=== PATIENT | female | born 1990 | race African-American/Black ===

== ENCOUNTER 2017-03-09 19:45 | Emergency (ER) | payer BC ==
[~2017-03-09] VITALS: Ht 157.5 cm; Wt 55.3 kg
[2017-03-09] MEDS ORDERED: MULTIVITAMINS1 EAC2 ORAL (19:56)
[2017-03-09] MEDS ORDERED: IRON159 MG PO (19:56)
[2017-03-09] MEDS ORDERED: Metoclopramide 10mg/2ml Inj IVP ONE (20:00)
[2017-03-09] MEDS ORDERED: DiphenhydrAMINE 50mg/ml Inj IVP ONE (20:00)
[2017-03-09 20:36] LABS: BASOPHILS % (AUTO) 1.1 % (0.0-2.0); EOSINOPHILS % (AUTO) 0.5 % (0.0-3.0); HEMATOCRIT 36.4 % (37.0-47.0); HEMOGLOBIN 10.9 G/DL (12.0-16.0); MEAN CORPUSCULAR VOLUME 79 FL (80-99); MONOCYTES % (AUTO) 7.6 % (1.0-10.0); NEUTROPHILS % (AUTO) 61.8 % (45.0-75.0); PLATELET COUNT 239 K/UL (150-450); RED BLOOD COUNT 4.59 M/UL (4.20-5.40); RED CELL DISTRIBUTION WIDTH 14.4 % (11.6-14.8)
[2017-03-09 20:48] LABS: APPEARANCE,URINE CLEAR; BILIRUBIN, URINE NEGATIVE (NEGATIVE); COLOR,URINE PALE YELLOW; GLUCOSE, URINE (UA) NEGATIVE (NEGATIVE); KETONES,URINE NEGATIVE (NEGATIVE); LEUKOCYTE ESTERASE ,URINE NEGATIVE (NEGATIVE); NITRITE,URINE NEGATIVE (NEGATIVE); PH,URINE 6.5 (4.5-8.0); PROTEIN,URINE NEGATIVE (NEGATIVE); UROBILINOGEN,URINE NORMAL MG/DL (0.0-1.0)
[2017-03-09 20:54] LABS: ALANINE AMINOTRANSFERASE 19 U/L (12-78); ALBUMIN 3.7 G/DL (3.4-5.0); ALBUMIN/GLOBULIN RATIO 0.9 (1.0-2.7); ALKALINE PHOSPHATASE 49 U/L (46-116); ANION GAP 9 mmol/L (5-15); ASPARTATE AMINO TRANSFERASE 32 U/L (15-37); BILIRUBIN,TOTAL 0.3 MG/DL (0.2-1.0); BLOOD UREA NITROGEN 12 mg/dL (7-18); CALCIUM 9.3 MG/DL (8.5-10.1); CARBON DIOXIDE 25 MMOL/L (21-32); CHLORIDE 103 MMOL/L (98-107); CREATININE 0.8 MG/DL (0.55-1.30); POTASSIUM 4.7 MMOL/L (3.5-5.1); SODIUM 136 MMOL/L (136-145)
[2017-03-09] MEDS ORDERED: Morphine Sulfate 4mg/ml Inj IVP ONE (21:30)
--- NOTE | 2017-03-09 23:52 | Emergency Room Report ---
History of Present Illness General Chief Complaint: Complications Source: Patient Present Illness HPI Patient presents after passing clot vaginally at work. She also c/o suprapubic pain. This is 10/10, crampy and aching, fairly constant, not radiating. She claims 5 weeks . Aside from clot (shows picture) - no active bleeding. Not know blood type. Has 2 children (). LNMP January. No fevers, chills, change bowels, dizziness, dyspnea, chest pain. Some morning sickness. No discharge. No easy bruising. No seizures, leg edema. Sig other concerned about aggressive sex related. 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 Last Menstrual Period: unk Now: Yes : 3 Para: 2 Reviewed Nursing Documentation: PMH: Agreed, PSxH: Agreed Nursing Documentation-PMH Past Medical History: No Stated History Review of Systems All Other Systems: negative except mentioned in HPI Physical Exam Vital Signs Date Time Temp Pulse Resp B/P (MAP) Pulse Ox O2 Delivery O2 Flow Rate FiO2 03/09/17 19:51 98.1 69 18 112/76 98 Room Air Sp02 EP Interpretation: reviewed, normal General Appearance: well appearing, no apparent distress, GCS 15 Head: normocephalic Eyes: bilateral eye normal inspection, bilateral eye PERRL ENT: moist mucus membranes Neck: supple Respiratory: lungs clear, normal breath sounds Cardiovascular #1: regular rate, rhythm Cardiovascular #2: 2+ radial (R) Gastrointestinal: normal inspection, normal bowel sounds, no mass, non- distended, no guarding, no rebound, tenderness - suprapubic Genitourinary: no CVA tenderness, adnexa normal, cervix normal, os closed - old blood present, other - large uterus Musculoskeletal: back normal, gait/station normal, normal range of motion Neurologic: alert, oriented x3, grossly normal Psychiatric: mood/affect normal Skin: normal inspection, warm/dry Medical Decision Making Diagnostic Impression: Primary Impression: Threatened miscarriage ER Course Patient alleged 5 weeks with vaginal bleed and suprapubic pain. DDx: threatened miscarriage, miscarriage, ectopic, UTI amongst others. Emergent evaluation with labs, and if - ultrasound. Labs with mild anemia with microcytic indices. Quant 24,736. Coags normal. US with subchorionic bleed and no heart beat ID. No active bleed with closed cervix. Large uterus. Pain resolved after treatment. Delay due to not completion of type and Rh. Signed out to Dr. Rice for review of type and Rh. Laboratory Tests Test 03/09/17 19:57 03/09/17 20:20 Urine Color Pale yellow Urine Appearance Clear Urine pH 6.5 (4.5-8.0) Urine Specific [place] 1.015 (1.005-1.035) Urine Protein Negative (NEGATIVE) Urine Glucose (UA) Negative (NEGATIVE) Urine Ketones Negative (NEGATIVE) Urine Occult Blood 3+ (NEGATIVE) H Urine Nitrite Negative (NEGATIVE) Urine Bilirubin Negative (NEGATIVE) Urine Urobilinogen Normal MG/DL (0.0-1.0) Urine Leukocyte Esterase Negative (NEGATIVE) Urine RBC 2-4 /HPF (0 - 2) H Urine WBC 0-2 /HPF (0 - 2) Urine Squamous Epithelial Cells Moderate /LPF (NONE/OCC) H Urine Bacteria Few /HPF (NONE) White Blood Count 9.0 K/UL (4.8-10.8) Red Blood Count 4.59 M/UL (4.20-5.40) Hemoglobin 10.9 G/DL (12.0-16.0) L Hematocrit 36.4 % (37.0-47.0) L Mean Corpuscular Volume 79 FL (80-99) L Mean Corpuscular Hemoglobin 23.8 PG (27.0-31.0) L Mean Corpuscular Hemoglobin Concent 30.0 G/DL (32.0-36.0) L Red Cell Distribution Width 14.4 % (11.6-14.8) Platelet Count 239 K/UL (150-450) Mean Platelet Volume 7.2 FL (6.5-10.1) Neutrophils (%) (Auto) 61.8 % (45.0-75.0) Lymphocytes (%) (Auto) 29.0 % (20.0-45.0) Monocytes (%) (Auto) 7.6 % (1.0-10.0) Eosinophils (%) (Auto) 0.5 % (0.0-3.0) Basophils (%) (Auto) 1.1 % (0.0-2.0) Prothrombin Time 10.3 SEC (9.30-11.50) Prothrombin Time INR 1.0 (0.9-1.1) PTT 26 SEC (23-33) Sodium Level 136 MMOL/L (136-145) Potassium Level 4.7 MMOL/L (3.5-5.1) Chloride Level 103 MMOL/L (98-107) Carbon Dioxide Level 25 MMOL/L (21-32) Anion Gap 9 mmol/L (5-15) Blood Urea Nitrogen 12 mg/dL (7-18) Creatinine 0.8 MG/DL (0.55-1.30) Estimate Glomerular Filtration Rate > 60 mL/min (>60) Glucose Level 98 MG/DL (74-106) Calcium Level 9.3 MG/DL (8.5-10.1) Total Bilirubin 0.3 MG/DL (0.2-1.0) Aspartate Amino Transferase (AST) 32 U/L (15-37) Alanine Aminotransferase (ALT) 19 U/L (12-78) Alkaline Phosphatase 49 U/L (46-116) Total Protein 7.8 G/DL (6.4-8.2) Albumin 3.7 G/DL (3.4-5.0) Globulin 4.1 g/dL Albumin/Globulin Ratio 0.9 (1.0-2.7) L Lipase 249 U/L (73-393) Human Chorionic Gonadotropin, Quant 50849 mIU/mL (1-6) H Microbiology Date/Time Source Procedure Growth Status 03/09/17 01:00 Vaginal Wet Prep - Final Complete CT/MRI/US Diagnostic Results CT/MRI/US Diagnostic Results : Imaging Test Ordered: u/s pelvic Impression subchorionic bleed, no pole ID, blood on probe Impression: No intrauterine at 5 weeks 2 days. Viability not determined on this exam. Followup in 11 days would be helpful if clinically warranted. Last Vital Signs Date Time Temp Pulse Resp B/P (MAP) Pulse Ox O2 Delivery O2 Flow Rate FiO2 03/09/17 22:41 98.0 03/09/17 19:51 69 18 112/76 98 Room Air Status: improved Disposition: HOME, SELF-CARE Condition: Improved Scripts Acetaminophen With Codeine (T#3) (TYLENOL #3 TAB*) Y Tab 1 TAB ORAL Q6HR Y for For Pain, #12 TAB Prov: Jn Neal M.D. 03/09/17 Referrals: NON PHYSICIAN (PCP) Jn Neal M.D. Mar 09, 2017 23:52
[2017-03-09] MEDS ORDERED: ACETAMINOPHEN-1 EAC1 ORAL (23:56)
[2017-03-10 02:05] VITALS: BP 116/79
--- NOTE | 2017-03-10 08:36 | Diagnostic Imaging Report ---
Indication: Vaginal bleeding in early Technique: Transabdominal and endovaginal obstetrical. Comparison: None. Findings: Examination demonstrates an intrauterine gestational sac. There is a normal yolk sac. The right ovary is unremarkable. Left ovary is not visualized. No cardiac activity is identified on current examination. Gestational sac size corresponds to 5 weeks 2 days. Impression: No intrauterine at 5 weeks 2 days. Viability not determined on this exam. Followup in 11 days would be helpful if clinically warranted.
== END 2017-03-10 02:07 | disposition home or self-care (01) ==
LOC: EMR 20:07
DX: O20.0 Threatened abortion (principal); Z3A.01 Less than 8 weeks gestation of pregnancy
CPT/HCPCS: 36415; 76801; 80053; 81003; 83690; 84702; 85025; 85610; 85730; 86850; 86900; 86901; 87210; 96374; 96375; 99284; J1200; J2270; J2765

== ENCOUNTER 2017-03-13 20:37 | Emergency (ER) | payer BC ==
[~2017-03-13] VITALS: Ht 157.5 cm; Wt 55.3 kg
[~2017-03-13 20:37] MED LIST: ACETAMINOPHEN-1 EAC1 ORAL; IRON159 MG PO; MULTIVITAMINS1 EAC2 ORAL
[2017-03-13 21:31] LABS: BASOPHILS % (AUTO) 1.6 % (0.0-2.0); HEMATOCRIT 36.6 % (37.0-47.0); HEMOGLOBIN 10.6 G/DL (12.0-16.0); LYMPHOCYTES % (AUTO) 49.6 % (20.0-45.0); MEAN CORPUSCULAR VOLUME 82 FL (80-99); NEUTROPHILS % (AUTO) 37.7 % (45.0-75.0); PLATELET COUNT 242 K/UL (150-450); RED BLOOD COUNT 4.49 M/UL (4.20-5.40); RED CELL DISTRIBUTION WIDTH 14.5 % (11.6-14.8)
[2017-03-13 21:40] LABS: APPEARANCE,URINE SLIGHTLY CLOUDY; BILIRUBIN, URINE NEGATIVE (NEGATIVE); GLUCOSE, URINE (UA) NEGATIVE (NEGATIVE); KETONES,URINE NEGATIVE (NEGATIVE); LEUKOCYTE ESTERASE ,URINE NEGATIVE (NEGATIVE); NITRITE,URINE NEGATIVE (NEGATIVE); PH,URINE 5 (4.5-8.0); PROTEIN,URINE 2+ (NEGATIVE); UROBILINOGEN,URINE 1 MG/DL (0.0-1.0)
[2017-03-13 21:41] LABS: COLOR,URINE YELLOW
[2017-03-13 21:54] LABS: ALANINE AMINOTRANSFERASE 24 U/L (12-78); ALBUMIN 3.9 G/DL (3.4-5.0); ALKALINE PHOSPHATASE 53 U/L (46-116); ANION GAP 11 mmol/L (5-15); ASPARTATE AMINO TRANSFERASE 23 U/L (15-37); BILIRUBIN,TOTAL 0.2 MG/DL (0.2-1.0); BLOOD UREA NITROGEN 12 mg/dL (7-18); CALCIUM 9.1 MG/DL (8.5-10.1); CARBON DIOXIDE 25 MMOL/L (21-32); CHLORIDE 103 MMOL/L (98-107); CREATININE 0.8 MG/DL (0.55-1.30); POTASSIUM 3.4 MMOL/L (3.5-5.1); SODIUM 139 MMOL/L (136-145)
--- NOTE | 2017-03-13 22:32 | Emergency Room Report ---
History of Present Illness General Chief Complaint: Vaginal Source: Patient Present Illness HPI 26YOF Walk-in with continued vaginal bleeding - multiple pads used - for 3 days since previous visit here Patient went to OB today but he "left for family emergency." No repeat blood work or sono was done at office States pain is "much better" and hasnt even taken any meds Denies dysuria, polyuria. fever/chills, SOB, abd pain States Rh+ - states "doctor followed up with me on my results" from [facility] [place] Allergies: Coded Allergies: No Known Allergies (Unverified , 03/09/17) Patient History Past Medical History: none Past Surgical History: none Pertinent Family History: none Social History: Denies: smoking, alcohol use, drug use Last Menstrual Period: jan 31 Now: Yes - 5 weeks : 3 Para: 0 Immunizations: UTD Reviewed Nursing Documentation: PMH: Agreed, PSxH: Agreed Nursing Documentation-PMH Past Medical History: No Stated History Review of Systems All Other Systems: negative except mentioned in HPI Physical Exam Vital Signs Date Time Temp Pulse Resp B/P (MAP) Pulse Ox O2 Delivery O2 Flow Rate FiO2 03/13/17 20:41 97.7 74 18 105/67 100 Room Air Sp02 EP Interpretation: reviewed, normal General Appearance: normal inspection, well appearing, no apparent distress, alert Head: atraumatic ENT: normal ENT inspection, hearing grossly normal, normal voice Neck: normal inspection, full range of motion, supple, no bony tend Respiratory: normal inspection, lungs clear, normal breath sounds, no respiratory distress, no retraction, no wheezing Cardiovascular #1: regular rate, rhythm, no edema Gastrointestinal: normal inspection, normal bowel sounds, non tender, soft, no guarding, no hernia Genitourinary: no CVA tenderness Musculoskeletal: normal inspection, back normal, normal range of motion, Ioana' s Sign negative Neurologic: normal inspection, alert, responsive, speech normal Psychiatric: normal inspection, judgement/insight normal, mood/affect normal Skin: normal inspection, normal color, no rash Medical Decision Making Diagnostic Impression: Primary Impression: Vaginal bleeding Additional Impression: Spontaneous ER Course VSS. Afebrile. No chantell hemorrhage H&H stable from last visit Beta Quant trending down No other major chemical abnormalities Repeat sono on tech report: no subchorionic hemorrhage. 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 Mar 13, 2017 22:32
--- NOTE | 2017-03-13 22:32 | Emergency Room Report ---
History of Present Illness General Chief Complaint: Vaginal Source: Patient Present Illness HPI 26YOF Walk-in with continued vaginal bleeding - multiple pads used - for 3 days since previous visit here Patient went to OB today but he "left for family emergency." No repeat blood work or sono was done at office States pain is "much better" and hasnt even taken any meds Denies dysuria, polyuria. fever/chills, SOB, abd pain States Rh+ - states "doctor followed up with me on my results" from [facility] [place] Allergies: Coded Allergies: No Known Allergies (Unverified , 03/09/17) Patient History Past Medical History: none Past Surgical History: none Pertinent Family History: none Social History: Denies: smoking, alcohol use, drug use Last Menstrual Period: jan 31 Now: Yes - 5 weeks : 3 Para: 0 Immunizations: UTD Reviewed Nursing Documentation: PMH: Agreed, PSxH: Agreed Nursing Documentation-PMH Past Medical History: No Stated History Review of Systems All Other Systems: negative except mentioned in HPI Physical Exam Vital Signs Date Time Temp Pulse Resp B/P (MAP) Pulse Ox O2 Delivery O2 Flow Rate FiO2 03/13/17 20:41 97.7 74 18 105/67 100 Room Air Sp02 EP Interpretation: reviewed, normal General Appearance: normal inspection, well appearing, no apparent distress, alert Head: atraumatic ENT: normal ENT inspection, hearing grossly normal, normal voice Neck: normal inspection, full range of motion, supple, no bony tend Respiratory: normal inspection, lungs clear, normal breath sounds, no respiratory distress, no retraction, no wheezing Cardiovascular #1: regular rate, rhythm, no edema Gastrointestinal: normal inspection, normal bowel sounds, non tender, soft, no guarding, no hernia Genitourinary: no CVA tenderness Musculoskeletal: normal inspection, back normal, normal range of motion, Ioana' s Sign negative Neurologic: normal inspection, alert, responsive, speech normal Psychiatric: normal inspection, judgement/insight normal, mood/affect normal Skin: normal inspection, normal color, no rash Medical Decision Making Diagnostic Impression: Primary Impression: Vaginal bleeding Additional Impression: Spontaneous ER Course VSS. Afebrile. No chantell hemorrhage H&H stable from last visit Beta Quant trending down No other major chemical abnormalities Repeat sono on tech report: no subchorionic hemorrhage. 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 Mar 13, 2017 22:32
--- NOTE | 2017-03-13 22:32 | Emergency Room Report ---
History of Present Illness General Chief Complaint: Vaginal Source: Patient Present Illness HPI 26YOF Walk-in with continued vaginal bleeding - multiple pads used - for 3 days since previous visit here Patient went to OB today but he "left for family emergency." No repeat blood work or sono was done at office States pain is "much better" and hasnt even taken any meds Denies dysuria, polyuria. fever/chills, SOB, abd pain States Rh+ - states "doctor followed up with me on my results" from [facility] [place] Allergies: Coded Allergies: No Known Allergies (Unverified , 03/09/17) Patient History Past Medical History: none Past Surgical History: none Pertinent Family History: none Social History: Denies: smoking, alcohol use, drug use Last Menstrual Period: jan 31 Now: Yes - 5 weeks : 3 Para: 0 Immunizations: UTD Reviewed Nursing Documentation: PMH: Agreed, PSxH: Agreed Nursing Documentation-PMH Past Medical History: No Stated History Review of Systems All Other Systems: negative except mentioned in HPI Physical Exam Vital Signs Date Time Temp Pulse Resp B/P (MAP) Pulse Ox O2 Delivery O2 Flow Rate FiO2 03/13/17 20:41 97.7 74 18 105/67 100 Room Air Sp02 EP Interpretation: reviewed, normal General Appearance: normal inspection, well appearing, no apparent distress, alert Head: atraumatic ENT: normal ENT inspection, hearing grossly normal, normal voice Neck: normal inspection, full range of motion, supple, no bony tend Respiratory: normal inspection, lungs clear, normal breath sounds, no respiratory distress, no retraction, no wheezing Cardiovascular #1: regular rate, rhythm, no edema Gastrointestinal: normal inspection, normal bowel sounds, non tender, soft, no guarding, no hernia Genitourinary: no CVA tenderness Musculoskeletal: normal inspection, back normal, normal range of motion, Ioana' s Sign negative Neurologic: normal inspection, alert, responsive, speech normal Psychiatric: normal inspection, judgement/insight normal, mood/affect normal Skin: normal inspection, normal color, no rash Medical Decision Making Diagnostic Impression: Primary Impression: Vaginal bleeding Additional Impression: Spontaneous ER Course VSS. Afebrile. No chantell hemorrhage H&H stable from last visit Beta Quant trending down No other major chemical abnormalities Repeat sono on tech report: no subchorionic hemorrhage. 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 Mar 13, 2017 22:32
[2017-03-13 23:15] VITALS: BP 110/69
[2017-03-13 23:20] VITALS: BP 110/69
--- NOTE | 2017-03-14 15:10 | Diagnostic Imaging Report ---
Indication:Vaginal bleeding Technique: Grayscale and duplex Doppler imaging of the pelvis performed utilizing a transabdominal scan and endovaginal scan. Comparison: None Findings: Uterus is retroverted. Both ovaries are seen and appear normal essentially. The endometrium is echogenic and measures 5 mm. Uterus measures 10 x 5 x 4 cm. Impression: Negative pelvic ultrasound. Uterus is retroverted
== END 2017-03-13 23:20 | disposition home or self-care (01) ==
LOC: EMR 21:20
DX: O03.9 Complete or unspecified spontaneous abortion without complication (principal)
CPT/HCPCS: 36415; 76830; 76856; 80053; 81003; 81025; 84702; 85025; 99282